=== PATIENT | female | born 1980 | race Caucasian/White ===

== ENCOUNTER 2023-12-26 23:16 | Emergency (ER) | payer MEDICAID ==
[~2023-12-26] VITALS: Ht 165.1 cm; Wt 68.2 kg
[~2023-12-26 23:16] MED LIST: IBUP-14 PO
[2023-12-26 23:28] VITALS: BP 142/86; PULSE 99; RESP 18; TEMP 99; O2SAT 100
[2023-12-26 23:54] LABS: APPEARANCE,URINE HAZY (CLEAR); BILIRUBIN,URINE NEGATIVE (NEGATIVE); COLOR,URINE YELLOW (YELLOW); GLUCOSE, URINE (UA) NEGATIVE (NEGATIVE); KETONES,URINE NEGATIVE (NEGATIVE); LEUKOCYTE ESTERASE ,URINE LARGE (NEGATIVE); NITRATE,URINE POSITIVE (NEGATIVE); OCCULT BLOOD,URINE TRACE (NEGATIVE); PH,URINE 5.5 (5.0-8.0); PROTEIN,URINE TRACE mg/dL (NEGATIVE); SPECIFIC GRAVITIY, URINE 1.029 (1.003-1.030); UROBILINOGEN,URINE <=1.0 mg/dL (<=1.0)
[2023-12-27 00:24] LABS: BACTERIA,URINE Many /HPF (None Seen); RBC,URINE None Seen /HPF (0-2); SQUAMOUS EPITHELIAL CELL,UR Moderate /LPF (None Seen); WBC,URINE 26-50 /HPF (0-5)
[2023-12-27 00:25] LABS: CALCIUM OXALATE CRYSTALS,UR Few /LPF (None Seen)
== END 2023-12-27 00:35 | disposition left against medical advice (07) ==
LOC: EMS 23:16
DX: A74.9 Chlamydial infection, unspecified (principal); Z53.21 Procedure and treatment not carried out due to patient leaving prior to being seen by health care provider
CPT/HCPCS: 81001; 87086; 87186